=== PATIENT | female | born 1935 | race Caucasian/White ===

== ENCOUNTER 2018-09-06 12:38 | Day surgery (SDC) | payer OTHER ==
--- OUTSIDE RECORDS SUMMARY | 2018-09-06 12:40 | XMS REPORT | Clinical Summary ---
:1935 Author Organization [facility] Address [address] [place] [address] Care Team Providers Name Role Phone Lanre Temple MD Primary Care Provider Allergies Active Allergy Reactions Severity Noted Date Comments Psyllium 05/26/2016 Medications Medication Sig Dispensed Refills Start Date End Date Status amLODIPine (NORVASC) 10 Take 10 mg by 2 06/10/2016 Active MG tablet mouth once daily. VIT A/VIT C/VIT Take by mouth. 0 Active E/ZINC/COPPER (ICAPS AREDS ORAL) pantoprazole (PROTONIX) Take 40 mg by 5 03/18/2017 Active 40 MG EC tablet mouth once daily. spironolactone Take 1 tablet 90 tablet 3 11/03/2017 11/03/2018 Active (ALDACTONE) 25 MG (25 mg total) tablet by mouth daily. 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 Claudication 05/26/2016 Dyspnea 05/26/2016 Chest pain 05/26/2016 Encounters Date Type Specialty Care Team Description 11/03/2017 Office Visit Cardiology Souleymane Drew MD Peripheral arterial occlusive disease (Primary Dx); Bilateral carotid artery disease; Essential hypertension after 09/05/2017 Social History Tobacco Use Types Packs/Day Years Used Date Never Smoker Alcohol Use Drinks/Week oz/Week Comments Yes occasional Sex Assigned at Date Recorded Not on file Job Start Date Occupation Industry Not on file Not on file Not on file Travel History Travel Start Travel End No recent travel history available. Last Filed Vital Signs Vital Sign Reading Time Taken Blood Pressure 195/81 11/03/2017 9:54 AM CDT Pulse 70 11/03/2017 9:54 AM CDT Temperature - - Respiratory Rate - - Oxygen Saturation - - Inhaled Oxygen Concentration - - Weight 58.5 kg (129 lb) 11/03/2017 9:54 AM CDT Height 154.9 cm (5' 1") 11/03/2017 9:54 AM CDT Body Mass Index 24.37 11/03/2017 9:54 AM CDT Plan of Treatment Date Type Specialty Care Team Description 11/16/2018 Office Visit Cardiology Souleymane Drew MD [address] [facility] [address] [place] [address] Health Maintenance Due Date Last Done Comments SHINGLES VACCINES (1 of 2) 01/13/1986 PNEUMOCOCCAL POLYSACCHARIDE VACCINE AGE 65 AND OVER 01/13/2001 PNEUMOCOCCAL-13 01/13/2001 INFLUENZA VACCINE 03/03/2018 Results Not on fileafter 09/05/2017 Insurance Payer Benefit Plan / Group Subscriber ID Type Phone Address AETNA MEDICARE AETNA MEDICARE HMO/PPO [facility] xxxxxxxx HMO Advance Directives Patient has advance care planning documents on file. For more information, please contact:Aldo Nuñez[address] [place] [phone]
[2018-09-06] MEDS ORDERED: NS 0.9% VIAL 10 ML ONE (12:56)
[2018-09-06] MEDS ORDERED: BALANCED SALT IRRIG PLAIN 500 ML BTL IRR ONE (12:56)
[2018-09-06] MEDS ORDERED: EPINEPHRINE/PF 1 MG/ML AMP ONE (12:56)
[2018-09-06] MEDS ORDERED: DUOVISC 1 KIT OPTH ONE ×2 (12:57→15:12)
[2018-09-06] MEDS ORDERED: MOXIFLOXACIN HCL 10 DROPS/ML **OR USE OPTH ONE (12:57)
[2018-09-06] MEDS ORDERED: CYCLOPENTOLATE 1% OPTH 2 ML ONE (13:24)
[2018-09-06] MEDS ORDERED: LIDOCAINE 2% MPF 5 ML VIAL ONE (13:24)
[2018-09-06] MEDS ORDERED: BUPIVACAINE 0.25% PF 10 ML VIAL ONE (13:24)
[2018-09-06] MEDS ORDERED: PHENYLEPHRINE 10% OPTH 5ML OPTH ONE ×2 (13:24→13:34)
[2018-09-06] MEDS ORDERED: PHENYLEPHRINE 10% OPTH 5ML ONE (13:24)
[2018-09-06] MEDS ORDERED: NA CHLORIDE 0.9% 500 ML ONE (13:24)
[2018-09-06] MEDS ORDERED: TETRACAINE HCL 0.5% 2ML OPTH ONE (13:24)
[2018-09-06] MEDS ORDERED: CYCLOPENTOLATE 1% OPTH 2 ML OPTH ONE ×2 (13:24→13:34)
[2018-09-06] MEDS ORDERED: PROPOFOL 200 MG/20 ML VIAL IV ONE (14:17)
[2018-09-06] MEDS ORDERED: LIDOCAINE 2% INJ, MPF 2 ML 1 ML ONE (14:18)
[2018-09-06] MEDS ORDERED: FENTANYL CITR 100 MCG/2 ML ONE (15:37)
--- NOTE | 2018-09-06 15:42 | P.BOP ---
Preoperative diagnosis: Nuclear sclerotic cataract and regular astigmatism OS Postoperative diagnosis: Same + phacodenesis OS Primary procedure: Phacoemulsification with Toric IOL complex OS Estimated blood loss: None Anesthesia: Local (Subtenon's infusion with anesthesia for cataract surgery) Complications: None Implants: SN6AT5 +20.0 @ 179 degrees Transferred to: Other (Day surgery) Condition: Good
--- NOTE | 2018-09-07 03:23 | OP ---
Date of Procedure: 09/06/2018 Surgeon: Katarina Clemons MD Anesthesiologist: Carlos Cadena CRNA and Kenneth Mike MD. Preoperative Diagnoses: Nuclear sclerotic cataract and regular astigmatism, left eye. Postoperative Diagnoses: Nuclear sclerotic cataract and regular astigmatism, left eye; phacodonesis, left eye. Operation Performed: Phacoemulsification with intraocular lens implant left eye complex with the use of iris retractors. Anesthesia: Per cataract surgery. Complications: None. Description Of The Procedure: In day surgery, the patient was prepped with Betadine and draped. A lid speculum was placed in the left eye. A conjunctival incision was made in the inferior nasal quadrant with Bryant scissors. A 1:1 mixture of 2% Xylocaine and 0.25% bupivacaine was placed around the globe. Approximately 5 mL were used. A Honan balloon was placed on the eye for approximately 5 minutes. The patient was brought into the operative room. The patient was prepped and draped in the usual sterile fashion for ophthalmic surgery. A lid speculum was placed in the eye. Paracentesis were made superiorly and inferiorly in the limbal cornea. Viscoat was placed in the anterior chamber. A crescent blade was used to create a tunnel incision in the temporal cornea and a keratome was used to enter the anterior chamber. Provisc was placed in the eye and 360 degree capsulotomy was performed. During the capsulotomy, the lens was mildly rocking back and forth. The lens was hydrodissected with balanced salt solution. Four additional paracentesis sites were created; through these, 4 iris retractors were placed to stabilize the lens. The lens was removed in a stop and chop fashion. 34.01 CDE was required. Irrigation and aspiration were used to remove residual cortex. Provisc was placed in the eye. A 12 mm capsular tension ring then a SN6AT5 +20 at 178 diopter lens was placed in the capsular bag without complications. The iris retractors were removed. Irrigation and aspiration were used to remove residual viscoelastic. The paracentesis sites were hydrated with balanced salt solution and the wound and paracentesis sites were inspected and found to be watertight. Intracameral Vigamox 0.07 cc was injected at the end of the procedure. The eye was irrigated with balanced salt solution. The eye was patched with a soft cotton patch and Quinones metal shield. The patient was returned to [facility] surgery in good condition. Comments: Discharge Instructions: Ms. Vyas is discharged to home in good condition and is to follow up with Dr. Clemons in the morning. KHADRA/CANDACE Voice ID: [id number] Report ID: [id number] MTDD
== END 2018-09-06 16:08 | disposition home or self-care (01) ==
LOC: OR 12:38
PROVIDERS: ATTEND Ophthalmology Retina Specialist
PROC: 08RK3JZ Replacement of Left Lens with Synthetic Substitute, Percutaneous Approach (ICD-10-PCS; principal; 2018-09-06 12:00)
DX: H25.12 Age-related nuclear cataract, left eye (principal); H52.222 Regular astigmatism, left eye; H27.8 Other specified disorders of lens; H40.053 Ocular hypertension, bilateral; H43.812 Vitreous degeneration, left eye; I10 Essential (primary) hypertension; M06.9 Rheumatoid arthritis, unspecified; Z88.6 Allergy status to analgesic agent; Z85.828 Personal history of other malignant neoplasm of skin; Z95.5 Presence of coronary angioplasty implant and graft; Z83.518 Family history of other specified eye disorder; Z82.49 Family history of ischemic heart disease and other diseases of the circulatory system
CPT/HCPCS: 66982; J0171; J2704; J3010; J3490; V2787

== ENCOUNTER → 2018-10-18 | Day surgery (SDC) | payer OTHER ==
[~2018-10-18] MED LIST: BALANCED SALT IRRIG PLAIN 500 ML BTL IRR ONE; CYCLOPENTOLATE 1% OPTH 2 ML ONE; CYCLOPENTOLATE 1% OPTH 2 ML OPTH ONE; DUOVISC 1 KIT OPTH ONE; EPINEPHRINE/PF 1 MG/ML AMP ONE; LIDOCAINE 2% MPF 5 ML VIAL ONE; NA CHLORIDE 0.9% 500 ML ONE; NS 0.9% VIAL 10 ML ONE; PHENYLEPHRINE 10% OPTH 5ML ONE; PHENYLEPHRINE 10% OPTH 5ML OPTH ONE; PROPOFOL 200 MG/20 ML VIAL IV ONE
--- OUTSIDE RECORDS SUMMARY | 2018-10-18 10:18 | XMS REPORT | Clinical Summary ---
:1935 Author Organization [facility] Address [address] [place] [address] Care Team Providers Name Role Phone Lanre [...] Bilateral carotid artery disease; Essential hypertension after 10/17/2017 Social History Tobacco Use Types Packs/Day Years [...] 11/16/2018 Office Visit Cardiology Souleymane Drew MD [address] [facility] [address] [place] [address] Health Maintenance Due Date Last Done Comments SHINGLES VACCINES (#1) 01/13/1986 65+ PNEUMOCOCCAL VACCINE (1 of 2 - PCV13) 01/13/2001 PNEUMOCOCCAL POLYSACCHARIDE VACCINE AGE 65 AND OVER 01/13/2001 INFLUENZA VACCINE 03/03/2018 Results Not on fileafter 10/17/2017 Insurance Payer Benefit Plan / Group Subscriber ID Type Phone Address AETNA MEDICARE AETNA MEDICARE HMO/PPO [facility] xxxxxxxx HMO Guarantor Name Account Type Relation to Date of Phone Billing Patient Address Tomy Vyas Personal/Family Self 1935 [phone] [address] [place] [address] Advance Directives Patient has advance care planning documents on file. For more information, please contact:Aldo Nuñez[address] [place] [address]
[2018-10-18] MEDS: TETRACAINE HCL 0.5% 2ML OPTH ONE ×3 (12:06→13:33)
[2018-10-18] MEDS: LIDOCAINE 2% MPF 5 ML VIAL ONE ×2 (12:06→12:39)
[2018-10-18] MEDS: BUPIVACAINE 0.25% PF 10 ML VIAL ONE ×2 (12:06→12:39)
[2018-10-18] MEDS: MOXIFLOXACIN HCL 10 DROPS/ML **OR USE OPTH ONE ×2 (13:00→13:36)
--- NOTE | 2018-10-18 13:47 | P.BOP ---
Preoperative diagnosis: Nuclear sclerotic cataract, regular astigmatism OD Postoperative diagnosis: Same and phacodenesis OD Primary procedure: Phacoemulsification with toric IOL, complex with iris retactors and CTR OD Estimated blood loss: None Anesthesia: Local (Subtenon's infusion with anesthesia for cataract surgery) Complications: None Implants: SN6AT4 +19.5 @ 174 Transferred to: Other (Day surgery) Condition: Good
--- NOTE | 2018-10-19 01:00 | OP ---
Date of Procedure: 10/18/2018 Surgeon: Katarina Clemons MD Anesthesiologist: Angela Mars CRNA and Abhi Brown M.D. Preoperative Diagnosis: Nuclear sclerotic cataract and regular astigmatism, right eye. Postoperative Diagnosis: Nuclear sclerotic cataract and regular astigmatism, right eye; phacodonesis, right eye. Operation Performed: Phacoemulsification with intraocular lens implant, right eye, complex with the use of iris retractors and capsular tension ring. Anesthesia: Per cataract surgery. Complications: None. Description Of The Procedure: In day surgery, the patient was prepped with Betadine and draped. A lid speculum was placed in the right eye. A conjunctival incision was made in the inferior nasal quadrant with Bryant scissors. A 1:1 mixture of 2% Xylocaine and 0.25% bupivacaine was placed around the globe. Approximately 5 mL were used. A Honan balloon was placed on the eye for approximately 5 minutes. The patient was brought into the operative room. The patient was prepped and draped in the usual sterile fashion for ophthalmic surgery. A lid speculum was placed in the eye. Paracentesis were made superiorly and inferiorly in the limbal cornea. Viscoat was placed in the anterior chamber. A crescent blade was used to create a tunnel incision in the temporal cornea and a keratome was used to enter the anterior chamber. Provisc was placed in the eye and 360 degree capsulotomy was performed. The lens was loose during the capsulotomy. Five additional paracentesis sites were created with one at the wound, one 180 degrees from the wound, and three in the superior and inferior quadrants; through these, 5 iris retractors were placed to stabilize the lens. The lens was hydrodissected with balanced salt solution and moved freely. The lens was removed in a stop and chop fashion. A 12.71 CDE was required. Irrigation and aspiration was used to remove residual cortex. Provisc was placed in the eye. A SN6AT4 +19.5 at 174 degrees diopter lens was placed in the capsular bag without complications. The iris retractors were removed. Irrigation and aspiration was used to remove residual viscoelastic. The paracentesis sites were hydrated with balanced salt solution and the wound and paracentesis sites were inspected and found to be watertight. Intracameral Vigamox 0.07 cc was injected at the end of the procedure. The eye was irrigated with balanced salt solution. The eye was patched with a soft cotton patch and Quinones metal shield. The patient was returned to day surgery in good condition. Comments: Iris retractors were used to stabilize the lens. Following irrigation and aspiration of the cortex, a 12 mm capsular tension ring was placed in the capsular bag without complication. Discharge Instructions: Ms. Vyas is discharged to home in good condition and is to follow up with Dr. Clemons in the morning. KHADRA/CANDACE Voice ID: [id number] Report ID: [id number] MTDD
== END | disposition home or self-care (01) ==
LOC: OR 10:14
PROVIDERS: ATTEND Ophthalmology Retina Specialist
PROC: 08RJ3JZ Replacement of Right Lens with Synthetic Substitute, Percutaneous Approach (ICD-10-PCS; principal; 2018-10-18 11:45)
DX: H25.11 Age-related nuclear cataract, right eye (principal); H52.221 Regular astigmatism, right eye; H27.8 Other specified disorders of lens; H40.051 Ocular hypertension, right eye; I10 Essential (primary) hypertension; M06.9 Rheumatoid arthritis, unspecified; Z88.6 Allergy status to analgesic agent; Z85.828 Personal history of other malignant neoplasm of skin; Z95.5 Presence of coronary angioplasty implant and graft; Z83.518 Family history of other specified eye disorder; Z82.49 Family history of ischemic heart disease and other diseases of the circulatory system
CPT/HCPCS: 36415; 84132; 66982; J2704; J0171

== ENCOUNTER 2024-09-22 11:00 | Day surgery (SDC) | payer OTHER ==
[2024-09-19 12:06] LABS: Absolute Basophils 0.1 K/uL (0-0.5); Absolute Eosinophils 0.4 K/uL (0-0.5); Absolute Lymphocytes (CBC) 1.6 K/uL (0.7-4.9); Absolute Monocytes 0.7 K/uL (0.1-1.3); Absolute Neutrophil 6.9 K/uL (1.8-8.0); Basophils % 0.9 % (0-1.3); Eosinophils % 4.2 % (0-4.4); Hematocrit 35.9 % (36.0-45.0); Hemoglobin 12.2 g/dL (12.0-15.0); Lymphocytes % 16.5 % (15.3-44.8); MCHC 34.2 g/dL (32.0-36.0); MCV 87.8 fL (80-100); MPV 8.7 fL (7.6-11.3); Monocytes % 7.4 % (3.3-12.3); Nucleated Red Blood Cells % 0.2 % (0-0); Platelets 325 thou/uL (152-406); RBC Red Blood Cell Count 4.08 M/uL (3.86-4.86); Red Cell Distribution Width 15.7 % (12.1-15.2)
[2024-09-19 12:16] LABS: PT Prothrombin Time 11.5 SECONDS (9.4-12.5); PTT, Activated Partial Thromb 32.3 SECONDS (24.3-36.9); Protime INR 1.1
[2024-09-19 12:21] LABS: Anion Gap 10.2 mEq/L (5.0-15.0); Potassium 4.2 mEq/L (3.5-5.1)
--- NOTE | 2024-09-19 12:46 | RAD REPORT ---
EXAMINATION: TWO VIEW CHEST XR CLINICAL INDICATION: Female, 89 years old. [facility] Pre-op pending abdominal angiogram. Hypertension TECHNIQUE: 2 view radiographs of the chest were performed. COMPARISON: 09/26/2020 FINDINGS: The lungs are well inflated and clear. Right costophrenic angle small calcified granuloma is stable. No pneumothorax or sizable effusion. The heart is normal in size. Mediastinal contours are unremarkable. IMPRESSION: No acute or significant abnormalities.
[2024-09-22] MEDS ORDERED: NA CHLORIDE 0.9% 500 ML ONE (11:04)
[2024-09-22 11:23] VITALS: TEMP 97.8
[2024-09-22] MEDS ORDERED: HEPARIN 10,000 UNIT/10 ML VIAL IV ONE (11:52)
[2024-09-22] MEDS ORDERED: HEPA 1000U/500MLS 2,000 UNIT/1,000 ML BAG IV ONE (11:52)
[2024-09-22] MEDS ORDERED: VERAPAMIL HCL 10 MG/4 ML VIAL IV ONE (11:52)
[2024-09-22] MEDS ORDERED: LIDOCAINE 1% 20 ML MDV ONE (11:52)
[2024-09-22] MEDS ORDERED: ATROPINE SULF 1 MG/10 ML SYR IV ONE (11:53)
[2024-09-22] MEDS ORDERED: HEPARIN 5000 UNIT/ML 1 ML VIAL ONE (11:53)
[2024-09-22] MEDS ORDERED: MIDAZOLAM HCL 2 MG/2 ML INJ ONE (11:53)
[2024-09-22] MEDS ORDERED: FENTANYL CITR 100 MCG/2 ML ONE (11:53)
--- NOTE | 2024-09-22 14:06 | OP ---
Date of Procedure: 09/22/2024 Surgeon: ESTEFANIA HAYES Procedure Performed: Peripheral angiogram. Indication: Peripheral vascular disease. Access: Right radial artery 6-Mongolian, closed with TR band. Complications: None. Bleeding: Less than 50 mL. Anesthesia: Total sedation time is 45 minutes. Used fentanyl, Versed. Description Of Procedure: After risks, and benefits, and alternatives were explained, the patient ag esha to procedure and signed informed consent. The patient was brought into cardiac catheterization laboratory, prepped and draped in usual sterile fashion. Then I accessed right radial artery using [facility] micropuncture kit. Under ultrasound guidance placed 6-Mongolian Slender sheath and took a long 4-Mongolian pigtail catheter, placed in distal aorta, performed distal aortogram and runoff and then re moved the catheter and the sheath, placed TR band with good hemostasis. Findings: 1. Distal aorta widely patent. 2. Right lower extremity: Common iliac, external iliac patent and the common femoral has 40% stenosi s. Profunda is patent. SFA has diffuse 30% to 40% stenosis and then popliteal artery is patent and then becomes 100% occluded and there is reconstitution of all 3 vessels from collaterals below the kn ee. 3. Left lower extremity, the common iliac ostially has 70% to 80% stenosis and the external iliac is patent. Common femoral has 30% to 40% stenosis. Profunda is patent. SFA has proximal 90% stenosis, then diffuse 30% to 40% stenosis throughout. There is a stent distally with 60% in-stent restenosis and then below the knee there is moderate diffuse disease ranging between 60 and 70% stenosis. Conclusion: Severe bilateral peripheral vascular disease. Recommendation: Intervention on the left flank initially and then the right leg cautiously using con trast as she has significant chronic kidney disease. SR/MODL Voice ID: [id number] Report ID: [id number]
[2024-09-22 15:12] VITALS: BP 152/60; O2SAT 98
--- NOTE | 2024-09-26 12:33 | EKG ---
Test Date: 2024-09-19 Test Time: 12:08:32 Vice President Of Compliance: SILVANO MEASUREMENT RESULTS: Intervals: Rate: 55 UT: 212 QRSD: 66 QT: 390 QTc: 373 [place]: P: 29 UT: 212 QRS: -46 T: -19 INTERPRETIVE STATEMENTS: Sinus bradycardia with 1st degree AV block Left axis deviation Minimal voltage criteria for LVH, may be normal variant Inferior infarct, age undetermined Anterior infarct, age undetermined Abnormal ECG Compared to ECG 10/05/2003 11:36:00 First degree AV block now present Left-axis deviation now present Left ventricular hypertrophy now present Sinus rhythm no longer present Atrial premature complex(es) no longer present Myocardial infarct finding still present Electronically Signed On 09-26-24 12:18:47 [employer] CHIEF INSPECTOR by Carlos Ford
== END 2024-09-22 15:00 | disposition home or self-care (01) ==
LOC: CCL 11:00
PROVIDERS: ATTEND Internal Medicine
DX: I70.223 Atherosclerosis of native arteries of extremities with rest pain, bilateral legs (principal); I70.92 Chronic total occlusion of artery of the extremities; T82.856A Stenosis of peripheral vascular stent, initial encounter; I65.29 Occlusion and stenosis of unspecified carotid artery; I34.0 Nonrheumatic mitral (valve) insufficiency; I35.1 Nonrheumatic aortic (valve) insufficiency; I10 Essential (primary) hypertension; E78.5 Hyperlipidemia, unspecified; Z79.82 Long term (current) use of aspirin; Z79.899 Other long term (current) drug therapy; Z88.8 Allergy status to other drugs, medicaments and biological substances; Z91.02 Food additives allergy status; Z82.49 Family history of ischemic heart disease and other diseases of the circulatory system
CPT/HCPCS: 93005; 85025; 80048; 36415; 85610; 85730; 71046; 36200; 75630; 76937; C1893; C1887; J1644; J2003; J2250; J3010; J7040; 99152; 99153; J0461

== ENCOUNTER 2025-03-14 14:01 | Emergency (ER) | payer OTHER ==
[2025-03-14] MEDS ORDERED: HYDROCODONE/APAP 5/325 MG TAB ONE (15:40)
--- NOTE | 2025-03-14 16:19 | RAD REPORT ---
EXAMINATION: XR Elbow Left 3 View CLINICAL INDICATION: Female, 89 years old. PAIN TECHNIQUE: 3 view radiographs of the left elbow were obtained. COMPARISON: No prior exam. FINDINGS: No evidence of fracture or dislocation. Normal alignment. No joint effusion. No evidence of arthropathy. No suspicious focal bone lesion. Pronounced soft tissue swelling along the dorsal lower upper arm and elbow. IMPRESSION: No acute or significant osseous abnormalities. Soft tissue swelling as above.
--- NOTE | 2025-03-14 16:43 | EDPHYS ---
Physician Documentation [facility] Name: Hanna Vyas Age: 89 yrs Sex: Female : 1935 Arrival Date: 03/14/2025 Time: 14:01 Bed 11 Private MD: ED Physician Aparna Mojica HPI: 03/14 14:15 This 89 yrs old Female presents to ER via Ambulatory with complaints of Fall dr5 Injury. 14:15 Details of fall: The patient fell from an upright position, while standing. Onset: The dr5 symptoms/episode began/occurred acutely. 14:19 Patient is an 89-year-old female with a history of hypertension, osteoporosis, dr5 parathyroid issue coming in with slip and fall approximately 30 minutes prior to arrival. Patient reports that she missed a step and landed on her left elbow. Patient reports that she takes Plavix daily and having severe left elbow pain. Patient denies shoulder, wrist or hand injury. Patient also denies hitting her head. Patient denies chest pain, abdominal pain, nausea, vomiting, diarrhea.. Historical: - Allergies: 14:05 No Known Allergies; hb ROS: 14:19 Constitutional: as per hpi dr5 Exam: 14:19 Constitutional: This is a well developed, well nourished patient who is awake, alert, dr5 and in no acute distress. 14:19 Head/Face: Normocephalic, atraumatic. Eyes: Pupils equal round and reactive to light, extra-ocular motions intact. Lids and lashes normal. Conjunctiva and sclera are non-icteric and not injected. Cornea within normal limits. Periorbital areas with no swelling, redness, or edema. ENT: Nares patent. No nasal discharge, no septal abnormalities noted. Tympanic membranes are normal and external auditory canals are clear. Oropharynx with no redness, swelling, or masses, exudates, or evidence of obstruction, uvula midline. Mucous membranes moist. Chest/axilla: Normal chest wall appearance and motion. Nontender with no deformity. No lesions are appreciated. Cardiovascular: Regular rate and rhythm with a normal S1 and S2. Normal PMI, no JVD. No pulse deficits. Respiratory: Lungs have equal breath sounds bilaterally, clear to auscultation. No rales, rhonchi or wheezes noted. No increased work of breathing, no retractions or nasal flaring. Back: No spinal tenderness. No costovertebral tenderness. Full range of motion. Skin: Warm, dry with normal turgor. Normal color with no rashes, no lesions, and no evidence of cellulitis. Neuro: Awake and alert, GCS 15, oriented to person, place, time, and situation. Cranial nerves II-XII grossly intact. Motor strength 5/5 in all extremities. Sensory grossly intact. Cerebellar exam normal. Normal gait. 14:19 Musculoskeletal/extremity: Extremities: grossly normal except: noted in the left antecubital area: pain, swelling, tenderness, ROM: limited active range of motion, in the left antecubital area, Patient is able to extend, but not able to fully flex due to large hematoma noted to posterior left elbow., Circulation is intact in all extremities. Sensation intact. Vital Signs: 14:06 BP 164 / 63; Pulse 64; Resp 18; Temp 97; Pulse Ox 100% on R/A; Weight 51.26 kg; Height hb 5 ft. 8 in. ; Pain 8/10; 14:06 Body Mass Index 17.18 (51.26 kg, 172.72 cm) hb 14:06 Pain Scale: Adult hb MDM: 14:11 Medical Screening Exam initiated dr5 16:04 Awaiting: X-ray results. dr5 16:47 Differential diagnosis: abrasion, contusion, fracture, sprain, strain. Data reviewed: dr5 vital signs, nurses notes, radiologic studies, plain films. Consideration of Admission/Observation Escalation of care including admission/observation considered. Consider escalation if patient found to have broken elbow or open fracture. I considered the following discharge prescriptions or medication management in the emergency department I discussed and recommended Over The Counter medications, Medications were administered in the Emergency Department. See MAR. Independent interpretation of the following test(s) in the Emergency Department X-Ray: My interpretation is Independent termination of x-ray did not reveal any fracture.. Historians other than the Patient: Daughter/Son: Son at bedside. Care significantly affected by the following chronic conditions: Hypertension. Care significantly affected by the following Social Determinants of Health: Poor access to healthcare and/or lack of insurance, Poor access to transportation, Problems related to employment. Counseling: I had a detailed discussion with the patient and/or guardian regarding the historical points, exam findings, and any diagnostic results supporting the discharge/admit diagnosis, the presence of at least one elevated blood pressure reading (>120/80) during this emergency department visit, radiology results, the need for outpatient follow up, for definitive care, a family practitioner, a orthopedic surgeon, to return to the emergency department if symptoms worsen or persist or if there are any questions or concerns that arise at home. Medication response: Sargeant, ibuprofen. Response to treatment: the patient's symptoms have markedly improved after treatment. Special discussion: I have referred the patient to see his PCP for further evaluation of high blood pressure. I discussed with the patient/guardian in detail that at this point there is no indication for admission to the hospital. It is understood, however, that if the symptoms persist or worsen the patient needs to return immediately for re-evaluation. Based on the history and exam findings, there is no indication for further emergent testing or inpatient evaluation. I discussed with the patient/guardian the need to see the orthopedic surgeon for further evaluation of the symptoms. ED course: No fracture noted on x-ray. Will Anup wrap left elbow for compression. ibuprofen given for swelling. Patient has more pain when flexing due to hematoma. Recommended RICE. Will give patient sling per your son's request to wear when swelling goes down. Patient is agreeable plan. All questions answered. Strict ER precautions given.. 03/14 14:08 Order name: Elbow Left 3 View XRAY; Complete Time: 16:33 hb 03/14 16:40 Order name: Sling; Complete Time: 17:07 dr5 Administered Medications: 15:55 Drug: HYDROcodone-acetaminophen PO 5 mg-325 mg 2 tabs PO once Route: PO; mc7 16:50 Follow up: Response: No adverse reaction; Pain is decreased iw 03/15 10:51 Not Given (Patient Refused): [id number] mg PO once iw Disposition Summary: 03/14/25 16:43 Discharge Ordered Notes: Location: Home dr5 Condition: Stable dr5 Diagnosis - Contusion of left elbow dr5 Followup: dr5 - With: Emergency Department - When: As needed - Reason: Worsening of condition Followup: dr5 - With: Private Physician - When: 1 - 2 days - Reason: Recheck today's complaints, Continuance of care, Re-evaluation by your physician Discharge Instructions: - Discharge Summary Sheet dr5 - Elbow Contusion dr5 - How to Use a Sling dr5 Forms: - Medication Reconciliation Form dr5 - Patient Portal Instructions dr5 - Leadership Thank You Letter dr5 Prescriptions: - Ibuprofen 800 mg Oral Tablet - take 1 tablet ORAL route every 12 hours As needed take with food; 20 tablet; dr5 Refills: 0, Product Selection Permitted Signatures: Dispatcher [employer] EDChika Dwyer, RN RN Fahad Go, RHINESTONE SETTER-C RHINESTONE SETTER-Cdr5 Marichuy Ortiz RN RN mc7 Consuelo Abarca RN iw Corrections: (The following items were deleted from the chart) 03/14 14:08 14:08 Elbow Left 3 View+RAD.RAD.[email or web address] ordered. EDMS EDMS
--- NOTE | 2025-03-14 16:43 | ER ---
Nurse's Notes [facility] Name: Hanna Vyas Age: 89 yrs Sex: Female : 1935 Arrival Date: 03/14/2025 Time: 14:01 Bed 11 Private MD: Diagnosis: Contusion of left elbow Presentation: 03/14 14:05 Chief complaint: Left elbow pain and swelling after mechanical fall from standing 20 hb mins ago. On clopidogrel. 14:05 Method Of Arrival: Ambulatory hb 14:06 Coronavirus screen: At this time, the client does not indicate any symptoms associated hb with coronavirus-19. Ebola Screen: No symptoms or risks identified at this time. Initial Sepsis Screen: Does the patient meet any 2 criteria? No. Patient's initial sepsis screen is negative. Does the patient have a suspected source of infection? No. Patient's initial sepsis screen is negative. Risk Assessment: Do you want to hurt yourself or someone else? Patient reports no desire to harm self or others. Onset of symptoms was March 14, 2025. 14:07 Acuity: SORAYA 3 hb Historical: - Allergies: 14:05 No Known Allergies; hb Screenin:38 [facility] ED Fall Risk Assessment (Adult) History of falling in the last 3 months, iw including since admission Yes- single mechanical fall (1 pt) Confusion or Disorientation No (0 pts) Intoxicated or Sedated No (0 pts) Impaired Gait No (0 pts) Mobility Assist Device Used No (0 pt) Altered Elimination No (0 pt) Score/Fall Risk Level 0 - 2 = Low Risk Oriented to surroundings, Maintained a safe environment. Abuse screen: Denies threats or abuse. Nutritional screening: No deficits noted. Tuberculosis screening: No symptoms or risk factors identified. Assessment: 16:38 General: Appears in no apparent distress. Behavior is calm, cooperative. Pain: iw Complains of pain in left arm and left antecubital area. Neuro: Level of Consciousness is awake, alert, obeys commands, Oriented to person, place, time, situation. Respiratory: Respiratory effort is even, unlabored, Respiratory pattern is regular. Derm: Bruising that is dark purple, on left elbow. Musculoskeletal: Range of motion: limited in left elbow. Vital Signs: 14:06 BP 164 / 63; Pulse 64; Resp 18; Temp 97; Pulse Ox 100% on R/A; Weight 51.26 kg; Height hb 5 ft. 8 in. ; Pain 8/10; 14:06 Body Mass Index 17.18 (51.26 kg, 172.72 cm) hb 14:06 Pain Scale: Adult hb ED Course: 14:04 Patient arrived in ED. im 14:04 Fahad Tanner FNP-C [facility]. hb 14:06 Arm band placed on. hb 14:07 Triage completed. hb 14:15 Aparna Mojica MD is Attending Physician. dr5 14:32 Elbow Left 3 View XRAY In Process Unspecified. EDMS 16:01 Patient placed in an exam room, on a stretcher. mc7 16:10 Consuelo Abarca, RN is Primary Nurse. iw Administered Medications: 15:55 Drug: HYDROcodone-acetaminophen PO 5 mg-325 mg 2 tabs PO once Route: PO; mc7 16:50 Follow up: Response: No adverse reaction; Pain is decreased iw 03/15 10:51 Not Given (Patient Refused): [id number] mg PO once iw Outcome: 03/14 16:43 Discharge ordered by . dr5 17:07 Patient left the ED. iw Signatures: Dispatcher [employer] EDTN Consuelo Abarca, RN YUDI Chika Degroot RN RN Genna Hayes Fahad Tanner FNP-C FNP-[id number] Marichuy Ortiz RN RN mc7
== END 2025-03-14 17:07 | disposition home or self-care (01) ==
LOC: ER 14:01
DX: S50.02XA Contusion of left elbow, initial encounter (principal); W01.0XXA Fall on same level from slipping, tripping and stumbling without subsequent striking against object, initial encounter; Z79.01 Long term (current) use of anticoagulants
CPT/HCPCS: 99282